=== PATIENT | female | born 1970 | race Caucasian/White ===

== ENCOUNTER → 2022-03-07 | Outpatient (CLI) | payer BC | LOC: MRI 08:53 | DX: D16.22 Benign neoplasm of long bones of left lower limb (principal); M89.9 Disorder of bone, unspecified | CPT/HCPCS: 73718 ==

== ENCOUNTER → 2022-03-25 | Outpatient (CLI) | payer BC | LOC: MRI 09:03 | DX: M51.16 Intervertebral disc disorders with radiculopathy, lumbar region (principal) | CPT/HCPCS: 72148 ==